=== PATIENT | male | born 1990 | race Caucasian/White ===

== ENCOUNTER → 2018-08-16 | Outpatient (CLI) | payer OTHER | LOC: CIMAGING 12:10 | PROVIDERS: ATTEND Family Medicine | DX: M25.561 Pain in right knee (principal) | CPT/HCPCS: 73562-PO ==

== ENCOUNTER → 2018-08-20 | Outpatient (CLI) | payer OTHER | LOC: FIMAGING 07:05 | PROVIDERS: ATTEND Family Medicine | DX: M25.561 Pain in right knee (principal); M89.8X9 Other specified disorders of bone, unspecified site; Z87.39 Personal history of other diseases of the musculoskeletal system and connective tissue; Z98.890 Other specified postprocedural states; M87.851 Other osteonecrosis, right femur; M23.041 Cystic meniscus, anterior horn of lateral meniscus, right knee; M25.461 Effusion, right knee ==